=== PATIENT | male | born 1955 | race Asian ===

== ENCOUNTER 2019-10-23 13:14 | Emergency (ER) | payer OTHER ==
[~2019-10-23] VITALS: Ht 160 cm; Wt 47.6 kg
[2019-10-23 13:18] VITALS: Ht 160 cm; Wt 47.6 kg
[2019-10-23 14:50] VITALS: BP 130/86
== END 2019-10-23 14:50 | disposition home or self-care (01) ==
LOC: ED 13:14
DX: S16.1XXA Strain of muscle, fascia and tendon at neck level, initial encounter (principal); S39.012A Strain of muscle, fascia and tendon of lower back, initial encounter; I10 Essential (primary) hypertension; E11.9 Type 2 diabetes mellitus without complications; V49.9XXA Car occupant (driver) (passenger) injured in unspecified traffic accident, initial encounter; Y93.I9 Activity, other involving external motion; Y92.413 State road as the place of occurrence of the external cause; Y99.8 Other external cause status
CPT/HCPCS: 99406